=== PATIENT | female | born 1960 | race African-American/Black ===

== ENCOUNTER 2024-01-17 05:39 | Observation (INO) | payer OTHER ==
[2024-01-13 16:43] VITALS: BMI 30.5
[2024-01-17] MEDS ORDERED: Dexamethasone 4 mg/ml Vial ONE (06:05)
[2024-01-17] MEDS ORDERED: Fentanyl 250 MCG/5 ML VIAL ONE (06:05)
[2024-01-17] MEDS ORDERED: PROPOFOL 20 ML ONE ×2 (06:05→07:29)
[2024-01-17] MEDS ORDERED: Midazolam HCl 2 mg/2 ml Vial ONE (06:05)
[2024-01-17] MEDS ORDERED: Ondansetron PF 4 MG/2 ML Vial ONE ×2 (06:05→09:03)
[2024-01-17] MEDS ORDERED: SUCCINYLCHOLINE/SOD CL,ISO/PF 200 MG/10 ML SYRINGE FS ONE (06:06)
[2024-01-17] MEDS ORDERED: Lidocaine 1% PF 5 ML VIAL ONE (06:06)
[2024-01-17] MEDS ORDERED: Phenylephrine 10 MG/ML VIAL ONE (06:17)
[2024-01-17 07:02] LABS: Hematocrit 42.5 % (34.9-44.5); Hemoglobin 14.1 g/dL (12.0-15.5)
[2024-01-17] MEDS ORDERED: CEFAZOLIN 2 GM VIAL ONE (07:06)
[2024-01-17 07:13] LABS: Anion Gap 16 mmol/L (10-20); BUN (Urea Nitrogen) 15 mg/dL (9.8-20.1); Calc. Creatinine Clearance 62 mL/min (70-130); Calcium 10.8 mg/dL (7.8-10.44); Carbon Dioxide 24 mmol/L (23-31); Chloride 105 mmol/L (98-107); Estimated GFR 51; Glucose 113 mg/dL (80-115); Potassium 3.6 mmol/L (3.5-5.1); Sodium 141 mmol/L (136-145)
[2024-01-17] MEDS ORDERED: Tranexamic Acid 1,000 MG/10 ML VIAL ONE (07:29)
[2024-01-17] MEDS ORDERED: PHENYLEPHRINE-NS 100 MCG/ML 10 ML SYRINGE ONE (07:42)
[2024-01-17] MEDS ORDERED: EPINEPHrine 1 MG/ML AMP ONE (07:48)
[2024-01-17] MEDS ORDERED: fentaNYL 50 mcg/mL 1 mL Vial ONE ×3 (08:44→09:25)
[2024-01-17] MEDS ORDERED: Promethazine HCl 25 MG/ML VIAL ONE (09:59)
[2024-01-17] MEDS ORDERED: HYDROmorphone 0.5 MG/0.5 ML SYRINGE ONE (10:06)
[2024-01-17] MEDS ORDERED: ALPRAZolam 0.5 MG TAB PO PRN (11:06)
[2024-01-17] MEDS: Acetaminophen 325 MG TAB PO SCH (12:27)
[2024-01-17] MEDS: Potassium Chloride 10 MEQ TAB PO SCH (12:28)
[2024-01-17] MEDS: Pantoprazole DR 40 MG TAB PO SCH (12:28)
[2024-01-17] MEDS: Hydrochlorothiazide 25 MG TAB PO SCH (12:29)
[2024-01-17] MEDS: HYDROcodone/Acetaminophen 10/325 mg Tablet PO PRN (12:29)
[2024-01-17] MEDS: Ibuprofen 200 MG TAB PO SCH (15:31)
[2024-01-17] MEDS: Ondansetron ODT 4 MG TAB PO PRN (15:31)
[2024-01-17] MEDS: HYDROcodone/Acetaminophen 5/325 mg Tablet PO PRN (20:03)
[2024-01-17] MEDS: Ondansetron PF 4 MG/2 ML Vial IVP PRN (20:10)
[2024-01-17] MEDS: Doxepin HCl 25 MG CAP PO SCH (21:20)
[2024-01-18] MEDS: FLU (Fluarix Triv) TS24-25(6MOS UP)/PF 45 MCG/0.5 ML Syringe IM ONE (04:59)
[2024-01-18 08:18] VITALS: BP 114/83; TEMP 97.8
[2024-01-18] MEDS: Hydrochlorothiazide 25 MG TAB PO SCH (08:20)
[2024-01-18] MEDS: Enoxaparin 40 MG (0.4 mL) SYRINGE SC SCH (08:23)
[2024-01-18] MEDS: Potassium Chloride 10 MEQ TAB PO SCH (08:24)
[2024-01-18] MEDS: Pantoprazole DR 40 MG TAB PO SCH (08:24)
[2024-01-18] MEDS ORDERED: Varenicline Tartrate 0.5 MG TAB PO SCH (09:00)
== END 2024-01-18 12:15 | disposition home or self-care (01) ==
LOC: CSHSDC 05:39 → CSHTELE 10:59
PROVIDERS: ADMIT Otolaryngology; ATTEND Otolaryngology
PROC: 0GTG0ZZ Resection of Left Thyroid Gland Lobe, Open Approach (ICD-10-PCS; principal; 2024-01-17)
DX: E04.2 Nontoxic multinodular goiter (principal); M27.0 Developmental disorders of jaws; R59.9 Enlarged lymph nodes, unspecified; I10 Essential (primary) hypertension; E78.5 Hyperlipidemia, unspecified; F41.9 Anxiety disorder, unspecified; F17.210 Nicotine dependence, cigarettes, uncomplicated; Z90.710 Acquired absence of both cervix and uterus; Z90.49 Acquired absence of other specified parts of digestive tract; Z79.899 Other long term (current) drug therapy
CPT/HCPCS: 60220; 80048; 85014; 85018; 93005; J0171; J1100; J1650; J2250; J2371; J2405 ×2; J2550; J2704; J3010 ×2; Q0162; 36415; 88307; 93010